=== PATIENT | male | born 1985 | race Hispanic/Latino ===

== ENCOUNTER 2022-06-29 13:26 | Emergency (ER) | payer OTHER ==
[~2022-06-29] VITALS: Ht 172.7 cm; Wt 90.7 kg
[2022-06-29] MEDS ORDERED: KETOROLAC TROMETHAMINE 30 MG/ML VIAL IV STA (14:35)
[2022-06-29 14:41] LABS: BASOPHILS % 0.8 % (0.0-1.0); EOSINOPHILS # (AUTO) 0.1 (0.0-0.4); EOSINOPHILS % 2.2 % (0.0-6.0); HEMATOCRIT 40.3 % (38.2-49.6); HEMOGLOBIN 13.6 g/dL (14.0-18.0); LYMPHOCYTES # (AUTO) 1.8 (1.0-3.2); LYMPHOCYTES % 35.8 % (18.0-39.1); MEAN CORPUSCULAR HEMOGLOBIN 29.4 pg (28-32); MEAN CORPUSCULAR HGB CONC 33.7 g/dL (31-35); MEAN CORPUSCULAR VOLUME 87.2 fL (81-99); MONOCYTES # (AUTO) 0.3 (0.2-0.8); MONOCYTES % 6.8 % (4.4-11.3); NEUTROPHILS # (AUTO) 2.7 (2.1-6.9); NEUTROPHILS % 53.8 % (38.7-80.0); PLATELET COUNT 159 x10e3/uL (140-360); RED BLOOD COUNT 4.62 x10e6/uL (4.3-5.7); RED CELL DISTRIBUTION WIDTH 12.5 % (11.7-14.4)
[2022-06-29] MEDS ORDERED: ONDANSETRON HCL INJ 2MG/ML 2ML 2 MG/ML VIAL IV PRN (14:45)
[2022-06-29] MEDS ORDERED: Morphine 4mg INJECTION 4 MG/ML INJ IV PRN (14:45)
[2022-06-29] MEDS ORDERED: SODIUM CHLORIDE 0.9% 1000ML 1,000 ML IV ONE (14:45)
[2022-06-29] MEDS ORDERED: KETOROLAC TROMETHAMINE 60 MG/2 ML VIAL ONE (14:53)
[2022-06-29 15:02] LABS: ALBUMIN 3.9 g/dL (3.5-5.0); ANION GAP 16.5 mmol/L (8-16); CALCIUM 8.7 mg/dL (8.4-10.2); CREATININE, SERUM 0.83 mg/dL (0.72-1.25); POTASSIUM 3.5 mmol/L (3.5-5.1)
[2022-06-29 15:10] LABS: AMPHETAMINES SCREEN,URINE NEGATIVE (NEGATIVE); BENZODIAZEPINES SCREEN,URINE NEGATIVE (NEGATIVE); CLARITY,URINE SL CLOUDY (CLEAR); COLOR,URINE STRAW (YELLOW); KETONES,URINE TRACE (NEGATIVE); LEUKOCYTE ESTERASE ,URINE NEGATIVE (NEGATIVE); NITRITE,URINE NEGATIVE (NEGATIVE); PHENCYCLIDINE SCREEN,URINE NEGATIVE (NEGATIVE); PROTEIN,URINE DIPSTICK TRACE (NEGATIVE); URINE UROBILINOGEN 0.2 mg/dL (0.2 - 1)
[2022-06-29 15:27] LABS: AMORPHOUS SEDIMENT,URINE MODERATE (FEW); BACTERIA,URINE FEW /HPF; EPITHELIAL CELLS,URINE FEW /LPF; MUCUS,URINE MODERATE (RARE); WBC,URINE (MAN) 0-5 /HPF (0-5)
[2022-06-29 15:51] LABS: LIPASE 29 U/L (8-78)
[2022-06-29] MEDS ORDERED: ONDANSETRON ODT4 MG PO (16:09)
[2022-06-29] MEDS ORDERED: HYDROCODONE/APAP 5MG-325MG TAB PO ONE (16:15)
[2022-06-30] MEDS ORDERED: ZESTRIL10 MG PO (11:22)
[2022-06-30] MEDS ORDERED: AMLODIPINE BESYL5 MG PO (11:22)
[2022-06-30] MEDS ORDERED: METFORMIN HCL500 MG PO (11:22)
[2022-06-30] MEDS ORDERED: MELOXICAM7.5 MG PO (11:23)
[2022-06-30] MEDS ORDERED: CYCLOBENZAPRINE5 MG PO (11:24)
[2022-06-30] MEDS ORDERED: NOVOLIN 70100 UNIT/3 SC (11:24)
[2022-06-30] MEDS ORDERED: MAGNESIUM OXID400 MG PO (11:24)
== END 2022-06-29 16:23 | disposition home or self-care (01) ==
LOC: ER 13:38
DX: R10.13 Epigastric pain (principal); R11.0 Nausea; E11.65 Type 2 diabetes mellitus with hyperglycemia
CPT/HCPCS: 36415; 74018; 80053; 80307; 80320; 81001; 82150; 83690; 85025; 99284; J1885; J2405; J7030

== ENCOUNTER → 2022-07-07 | Day surgery (SDC) | payer OTHER ==
[~2022-07-07] MED LIST: AMLODIPINE BESYL5 MG PO; CYCLOBENZAPRINE5 MG PO; FENTANYL CITRATE/PF 100MCG/2 ML INJ ONE; INSULIN REGULAR, HUMAN 100 UNIT/1 ML ONE; LIDOCAINE HCL 2% LOCAL INJ 5 ML SDV VIAL INJ ONE; MAGNESIUM OXID400 MG PO; MELOXICAM7.5 MG PO; METFORMIN HCL500 MG PO; MIDAZOLAM HCL 2 MG/2 ML VIAL ONE; NOVOLIN 70100 UNIT/3 SC; ONDANSETRON ODT4 MG PO; ZESTRIL10 MG PO
[2022-07-07 12:30] VITALS: BP 127/85
== END | disposition home or self-care (01) ==
LOC: OR 10:22
PROVIDERS: ATTEND Internal Medicine Gastroenterology
DX: K29.50 Unspecified chronic gastritis without bleeding (principal); K31.7 Polyp of stomach and duodenum; K31.9 Disease of stomach and duodenum, unspecified; K20.90 Esophagitis, unspecified without bleeding; K44.9 Diaphragmatic hernia without obstruction or gangrene; K59.09 Other constipation; E11.9 Type 2 diabetes mellitus without complications; I10 Essential (primary) hypertension; M54.9 Dorsalgia, unspecified; N20.0 Calculus of kidney; Z88.0 Allergy status to penicillin; Z01.810 Encounter for preprocedural cardiovascular examination; Z79.4 Long term (current) use of insulin; Z79.899 Other long term (current) drug therapy; Z68.32 Body mass index [BMI] 32.0-32.9, adult; Z86.16 Personal history of COVID-19
CPT/HCPCS: 36415; 43239; 82948; 93005; C9113; J2001; J2250; J3010; J1817